=== PATIENT | female | born 1935 | race American Indian/Alaskan Native ===

== ENCOUNTER 2020-07-02 10:54 | Inpatient (IN) | payer MEDICARE, OTHER ==
[~2020-07-02] VITALS: Ht 172.7 cm; Wt 127.2 kg
[2020-07-02 11:10] LABS: Calcium, Ionized (POC) 1.29 mmol/L (1.10-1.46); Chloride (POC) 108 mmol/L (98-108); Creatinine (POC) 1.7 mg/dL (0.6-1.0); Glucose (ISTAT POC) 182 mg/dL (70-99); Hemoglobin (POC) 14.3 g/dL (12.0-16.0); Potassium (POC) 4.1 mmol/L (3.5-5.5); Sodium (POC) 142 mmol/L (135-148); Total CO2 (POC) 21 mmol/L (21-32)
[2020-07-02 11:20] LABS: PCO2 Arterial 45.7 mmHg (35-45); PO2 Arterial 186 mmHg (80-100); pH Blood Arterial 7.15 (7.35-7.45)
[2020-07-02 11:21] LABS: BASOPHILS ABSOLUTE AUTO 0.07 K/mm3 (0.00-0.23); BASOPHILS PERCENT AUTO 1 % (0-2); EOSINOPHILS ABSOLUTE AUTO 0.18 K/mm3 (0.00-0.68); EOSINOPHILS PERCENT AUTO 2 % (0-6); Hematocrit 42.2 % (33.0-51.0); Hemoglobin 12.6 g/dL (11.5-16.0); IMMATURE GRAN ABSOLUTE AUTO 0.32 K/mm3 (0.00-0.10); IMMATURE GRAN PERCENT AUTO 3 % (0-1); LYMPHOCYTES ABSOLUTE AUTO 5.85 K/mm3 (0.84-5.20); LYMPHOCYTES PERCENT AUTO 48 % (21-46); MONOCYTES ABSOLUTE AUTO 0.81 K/mm3 (0.16-1.47); MONOCYTES PERCENT AUTO 7 % (4-13); Mean Corpuscular HGB Conc 29.9 g/dL (31.5-36.5); Mean Corpuscular Volume 97 fL (80-100); NEUTROPHILS ABSOLUTE AUTO 4.93 K/mm3 (1.96-9.15); NEUTROPHILS PERCENT AUTO 41 % (41-73); NRBC ABSOLUTE 0.03 K/mm3 (0.00-0.02); NRBC Auto 0.2 /100 WBC (0.0-0.2); Platelet Count 159 K/mm3 (150-400); RDW Coefficient Variation 17.9 % (11.7-14.2); RDW Standard Deviation 63.7 fL (35.1-46.3); Red Blood Cell Count 4.34 M/mm3 (3.80-5.20); White Blood Cell Count 12.16 K/mm3 (4.00-11.30)
[2020-07-02 11:39] LABS: International Normalized Ratio 1.27; Prothrombin Time Results 13.5 Sec (9.7-11.5)
[2020-07-02 11:53] LABS: Albumin, Blood 3.2 g/dL (3.4-5.0); Albumin/Globulin Ratio 0.9 (0.8-1.8); Bilirubin, Total 0.7 mg/dL (0.1-1.0); Bun/Creatinine Ratio 10.6 (12.0-20.0); Creatinine, Blood 1.7 mg/dL (0.40-1.00); Globulin, Blood 3.5 g/dL (2.2-4.0); Total Protein, Blood 6.7 g/dL (6.4-8.2); Troponin I 0.023 ng/mL (0.000-0.040)
[2020-07-02 12:54] LABS: Influenza A, PCR NEGATIVE (NEGATIVE); Influenza B, PCR NEGATIVE (NEGATIVE); Resp Syncytial Virus, PCR NEGATIVE (NEGATIVE); SARS-Cov-2 (COVID-19) PCR, MMC NEGATIVE (NEGATIVE)
[2020-07-02 14:05] LABS: D-Dimer, Quantitative 13.63 mg/L FEU (0.00-0.52)
--- NOTE | 2020-07-02 15:35 | NUR ---
ARRIVAL TO ICU AT 1445. PT ADMITTED POST CARDIAC ARREST. REPORT FROM SERAFIN PARK. PT ARRIVES INTUBATED, VENT SETTINGS AC 16/450/5/40%. LUNGS DIMINISHED IN BASES. PT PALE, COOL, EXTERNAL COOLING BLANKETS IN PLACE. TARGET TEMP 36C. PT c STARTLE REFLEX WHEN HEAD TOUCHED. NO RESPONSE TO OTHER STIMULI. PUPILS 2 MM, REACTIVE. PT BREATHING OVER VENT. PROPOFOL STARTED. ABD OBESE, DISTENDED, FIRM, BT X 4. OGT TO LIS, BROWN EMESIS OUT. YEN PATENT, DRAINING TO GRAVITY. PEDAL PULSES BY DOPPLER, WEAK ON LEFT FOOT. SKIN c SCATTERED ABRASIONS. BP STABLE. AFIB, RATE 50'S ON MONITOR. WILL CONTINUE TO MONITOR.
--- NOTE | 2020-07-02 15:44 | NUR ---
DR SEALS ROUNDS/SON AT BEDSIDE SON, DOUGLAS, REPORTS HX OF CHF, ANN MARIE, DM, HTN, CKD. STATES PT HAS ONLY BEEN COMPLAINING OF HIP PAIN. ATTEMPTING TO ASSIST PT BACK TO BED WHEN PT BECAME UNRESPONSIVE, TOTAL DOWN/RESPONSE TIME OF EMS 5-6 MINUTES. ASYSTOLE, CPR, ROSC. DR SEALS UPDATED SON. PLAN TO KEEP SEDATED THIS SHIFT. LULÚ. COSTA D/C'D.
[2020-07-02 16:10] LABS: Base Excess Venous -5.1 mmol/L; Bicarbonate Venous 19.7 mmol/L (24.0-30.0); PCO2 Venous 44.5 mmHg (38-42); PO2 Venous 33.7 mmHg (38-42); pH Blood Venous 7.29 (7.34-7.37)
[2020-07-02 17:06] LABS: Source, Urine Catheter
[2020-07-02 17:24] LABS: Appearance, Urine Hazy (Clear); Bilirubin, Urine Neg (Neg); Blood, Urine 4+ (Neg); Color, Urine Yellow (P-Yellow); Glucose Qualitative, Urine 2+ (Neg); Ketones, Urine 1+ (Neg); Leukocyte Esterase, Urine 1+ (Neg); Nitrite, Urine Neg (Neg); Protein, Urine 3+ (Neg); Specific Gravity, Urine 1.015 (1.003-1.022); Urobilinogen, Urine NORM (Normal)
[2020-07-02 17:52] LABS: Bacteria Mod /hpf; Red Blood Cells, Urine TNTC /hpf (0-2); Squamous Epithelial Cells Rare /hpf (Few)
[2020-07-02 17:53] LABS: Amorphous Heavy (0-Heavy); Mucus Light (0-Heavy)
[2020-07-02 17:54] LABS: Renal Epithelial Few /hpf (0-Rare); Transitional Epithelial Cells Mod /hpf (0-Rare)
--- NOTE | 2020-07-02 19:00 | NUR ---
SHIFT SUMMARY PT REMAINS INTUBATED AND SEDATED. VENT SETTINGS AC 16/450/5/35%. PT CONTINUES TO HAVE STARTLE LIKE REFLEX WHEN HEAD OR SHOULDERS TOUCHED. NO MOVEMENT TO EXTREMITIES NOTED. DIFFICULTIES OBTAINING VASCULAR ACCESS. PICC TO RUE. OOZING. PRESSURE DRESSING APPLIED. HEPARIN GTT STARTED, 13 UNITS/KG/HR. LEVO GTT STARTED FOR MAP>65. DR BAI CONSULTED. ECHO COMPLETE, RESULTS PENDING. HR REMAINS 45-55, AFIB. DIURESED. REPORT TO AUBRIE PARK.
--- NOTE | 2020-07-02 20:00 | NUR ---
ASSUMED CARE OF PT AT 1915. REPORT RECEIVED AT BEDSIDE. PT RESPONDS ONLY SLIGHTLY TO STIMULI. WILL OPEN EYES THOUGH DOES NOT NECCESSARILY TRACK THIS RN. VENT AC 16, Tv 450, FIO2 30 %, PEEP 5. PT MAINTAINS > 90 PERCENT SATURATIONS WITH THIS. WILL REVIEW CHART AND PLAN OF CARE FOR THIS PT.
--- NOTE | 2020-07-02 22:00 | NUR ---
CALL TO DR BAI THIS A BIT EARLIER THIS EVENING. ORDERS RECEIVED.
[2020-07-03 04:10] LABS: BASOPHILS ABSOLUTE AUTO 0.01 K/mm3 (0.00-0.23); BASOPHILS PERCENT AUTO 0 % (0-2); EOSINOPHILS PERCENT AUTO 0 % (0-6); Hematocrit 32.4 % (33.0-51.0); Hemoglobin 10.5 g/dL (11.5-16.0); IMMATURE GRAN ABSOLUTE AUTO 0.05 K/mm3 (0.00-0.10); IMMATURE GRAN PERCENT AUTO 0 % (0-1); LYMPHOCYTES ABSOLUTE AUTO 1.19 K/mm3 (0.84-5.20); LYMPHOCYTES PERCENT AUTO 10 % (21-46); MONOCYTES ABSOLUTE AUTO 0.62 K/mm3 (0.16-1.47); MONOCYTES PERCENT AUTO 5 % (4-13); Mean Corpuscular HGB 28.8 pg (26.0-34.0); Mean Corpuscular HGB Conc 32.4 g/dL (31.5-36.5); Mean Corpuscular Volume 89 fL (80-100); Mean Platelet Volume 11.9 fL (9.1-12.4); NEUTROPHILS ABSOLUTE AUTO 9.77 K/mm3 (1.96-9.15); NEUTROPHILS PERCENT AUTO 84 % (41-73); Platelet Count 112 K/mm3 (150-400); RDW Coefficient Variation 17.3 % (11.7-14.2); RDW Standard Deviation 56.8 fL (35.1-46.3); Red Blood Cell Count 3.64 M/mm3 (3.80-5.20); White Blood Cell Count 11.64 K/mm3 (4.00-11.30)
[2020-07-03 04:36] LABS: Alanine Aminotransfer (ALT/SGP 18 U/L (12-78); Albumin, Blood 2.3 g/dL (3.4-5.0); Albumin/Globulin Ratio 0.9 (0.8-1.8); Alk Phos 98 U/L (50-136); Anion Gap 9 mmol/L (6-16); Aspartate Aminotrans (AST/SGOT 23 U/L (12-37); Blood Urea Nitrogen 20 mg/dL (8-24); Bun/Creatinine Ratio 12.3 (12.0-20.0); CO2, Blood 22 mmol/L (21-32); Calcium, Blood 8.1 mg/dL (8.5-10.1); Chloride, Blood 111 mmol/L (98-108); Creatinine, Blood 1.63 mg/dL (0.40-1.00); Globulin, Blood 2.5 g/dL (2.2-4.0); Glomerular Filtration Rate 32 (60-); Glucose, Blood 147 mg/dL (70-99); Potassium, Blood 3.6 mmol/L (3.5-5.5); Sodium, Blood 142 mmol/L (136-145); Total Protein, Blood 4.8 g/dL (6.4-8.2)
--- NOTE | 2020-07-03 06:36 | NUR ---
PT CONTINUES WITH LOW RATE AFIB WITH RATES IN 30'S TO LOW 40'S. BLOOD PRESSURE SUPPORTED WITH 2 MCG'S LEVOPHED KEEPING MAP > 65. CONTINUES WITH SPORATIC JERKY MOTIONS. PT NO LONGER OPENS HER EYES TO TACTILE OR VERBAL STIMULI. WITH ORAL CARE, PT HAS A SUCKLING TYPE RESPONSE TO SWABS. EYES ARE PERRLA. WILL CONTINUE TO MONITOR PT, AND WILL REPORT OFF TO ONCOMING RN.
--- NOTE | 2020-07-03 07:50 | NUR ---
ASSUMED CARE BEDSIDE REPORT FROM ADELINE PARK. PT INTUBATED AND SEDATED. VENT SETTINGS AC 16/450/5/30%. LUNGS DIMINISHED IN BASES. SMALL AMOUNT OF THIN PINK SECRETIONS THROUGH ETT. PROPOFOL GTT 25 MCG/KG/MIN. NO COUGH/GAG/SWALLOW REFLEX. OCCASIONAL TWITCHING OF FACE AND SHOULDERS. NO MOVEMENT NOTED TO EXTREMITIES. OCCASIONALLY STARTLES c TACTILE STIMULI. PT COOL, PALE. CORE TEMP 93.2, TARGET TEMP 96.8, BLANKETS APPLIED. AFIB, RATE 32-45. LEVO GTT FOR MAP >65. ABD OBESE, FIRM, DISTENDED. BT X 4. OGT TO LIS. YEN PATENT, DRAINING YELLOW URINE c SEDIMENT TO GRAVITY. DIURESED. GENERALIZED EDEMA THROUGHOUT BODY. 3+ TO BLE. PEDAL PULSES BY DOPPLER ONLY. PICC TO RUE, WILL CHANGE DRESSING THIS SHIFT. HEPARIN GTT AT 11 UNITS/KG/HR. WILL CONTINUE TO MONITOR.
--- NOTE | 2020-07-03 10:13 | NUR ---
DR SEALS ROUNDS PROPOFOL PLACED ON STANDBY. WITHIN MINUTES PT STARTED TWITCHING c AND s STIMULATION. ATTEMPTS TO OPEN EYES. CONCERN FOR SEIZURES c CLONIC JERKING. RESTARTED PROPOFOL, ATIVAN GIVEN. PLAN TO KEEP SEDATED, EEG ORDERED (TO BE COMPLETED TOMORROW) AND POSSIBLE HEAD CT TOMORROW.
--- NOTE | 2020-07-03 11:57 | NUR ---
FAMILY MEETING c SON DOUGLAS, SISTER AND DR SEALS. FAMILY REQUESTING PT TO BE COMFORT CARE. DOUGLAS STATES HE ALSO DISCUSSED c OTHER SON. COMFORT CARE ORDER SET PLACED. WILL PROCEED c EXTUBATION WHEN FAMILY READY.
--- NOTE | 2020-07-03 13:12 | NUR ---
GTTS PLACED ON STANDBY. VENT REMOVED AT 1304. AGONAL RESP. FAMILY BROUGHT TO BEDSIDE. TOD 1310.
--- NOTE | 2020-07-03 13:13 | NUR ---
1303 pt extubated to comfort
== END 2020-07-03 13:30 | DRG 208 ==
LOC: EDBD 10:54 → ER 10:54 → ICUE 13:50 → ICUW 13:50 → ICUE 14:22
PROVIDERS: Emergency Medicine; Internal Medicine Critical Care Medicine; ADMIT Internal Medicine Gastroenterology
PROC: 0BH18EZ Insertion of Endotracheal Airway into Trachea, Via Natural or Artificial Opening Endoscopic (ICD-10-PCS; principal; 2020-07-02)
PROC: 5A1935Z Respiratory Ventilation, Less than 24 Consecutive Hours (ICD-10-PCS; 2020-07-02)
PROC: 3E043XZ Introduction of Vasopressor into Central Vein, Percutaneous Approach (ICD-10-PCS; 2020-07-02)
PROC: 02HV33Z Insertion of Infusion Device into Superior Vena Cava, Percutaneous Approach (ICD-10-PCS; 2020-07-02)
DX: J96.00 Acute respiratory failure, unspecified whether with hypoxia or hypercapnia (principal); I13.0 Hypertensive heart and chronic kidney disease with heart failure and stage 1 through stage 4 chronic kidney disease, or unspecified chronic kidney disease; E87.2 Acidosis; N18.4 Chronic kidney disease, stage 4 (severe); G93.1 Anoxic brain damage, not elsewhere classified; Z68.41 Body mass index [BMI] 40.0-44.9, adult; I48.20 Chronic atrial fibrillation, unspecified; E78.5 Hyperlipidemia, unspecified; I46.9 Cardiac arrest, cause unspecified; Z20.822 Contact with and (suspected) exposure to COVID-19; Z66 Do not resuscitate; Z51.5 Encounter for palliative care; E11.22 Type 2 diabetes mellitus with diabetic chronic kidney disease; G47.33 Obstructive sleep apnea (adult) (pediatric); I46.8 Cardiac arrest due to other underlying condition; I50.9 Heart failure, unspecified; E66.01 Morbid (severe) obesity due to excess calories; Z95.2 Presence of prosthetic heart valve; Z90.49 Acquired absence of other specified parts of digestive tract; Z79.01 Long term (current) use of anticoagulants; Z79.84 Long term (current) use of oral hypoglycemic drugs; Z79.899 Other long term (current) drug therapy
CPT/HCPCS: 0241U; 31500; 36415; 36569; 36600; 51702; 70450; 71045; 71260; 80047; 80053; 80069; 81001; 82803; 82947; 83605; 83880; 84100; 84484; 85014; 85025; 85379; 85384; 85610; 85730; 87040; 87086; 93005; 93010; 93306; 94002; 94003; 96365-59; 96367-59; 99285-25; A9270; C1751; C1769; C1894; C9113; J0696; J1644; J1940; J1956; J2060; J2270; J2704; J7030; J7060; J7120; Q9967